=== PATIENT | female | born 1985 | race Caucasian/White ===

== ENCOUNTER 2022-09-07 18:32 | Emergency (ER) | payer MEDICAID ==
[~2022-09-07] VITALS: Ht 165.1 cm; Wt 97.7 kg
[2022-09-07 18:36] VITALS: BP 175/116
[2022-09-07] MEDS ORDERED: ACETAMINOPHEN 325MG TABLET PO ONE (20:00)
== END 2022-09-07 20:51 | disposition home or self-care (01) ==
LOC: ER 18:32
DX: M25.572 Pain in left ankle and joints of left foot (principal); M79.672 Pain in left foot
CPT/HCPCS: 73610; 73630; 99284; Z7610